=== PATIENT | female | born 1950 | race Caucasian/White ===

== ENCOUNTER → 2018-02-14 20:56 | Outpatient (CLI) | payer MEDICARE ==
[2015-10-07 06:58] VITALS: BMI 46.6
[~2018-02-14 20:56] MED LIST: ASPIRIN EC81 M1 PO; GLUCOPHAGE850 MG PO; HYDROCODON-ACE1 EAC7 PO; LISINOPRIL2.5 MG PO; PRAVACHOL20 MG PO
== END | disposition home or self-care (01) ==
LOC: D.MAMMO 15:30
DX: Z12.31 Encounter for screening mammogram for malignant neoplasm of breast (principal)

== ENCOUNTER 2019-02-18 08:00 | Outpatient (CLI) | payer MEDICARE ==
[2015-10-07 06:58] VITALS: BMI 46.6
== END 2019-02-18 23:59 | disposition home or self-care (01) ==
LOC: D.MAMMO 08:00
PROVIDERS: ATTEND Family Medicine
DX: Z12.31 Encounter for screening mammogram for malignant neoplasm of breast (principal)

== ENCOUNTER → 2020-04-07 11:30 | Outpatient (CLI) | payer MEDICARE ==
[2015-10-07 06:58] VITALS: BMI 46.6
== END | disposition home or self-care (01) ==
LOC: D.MAMMO 11:30
PROVIDERS: ATTEND Family Medicine
DX: Z12.31 Encounter for screening mammogram for malignant neoplasm of breast (principal)